=== PATIENT | female | born 1965 | race Caucasian/White ===

== ENCOUNTER 2021-09-19 14:11 | Outpatient (REF) | payer OTHER, SELFPAY | END 2021-09-19 14:12 | disposition home or self-care (01) | LOC: HO.LNP 14:11 | PROVIDERS: Visit Provider Physician Assistant Medical | DX: Z20.822 Contact with and (suspected) exposure to COVID-19 (principal) | CPT/HCPCS: U0003; U0005 ==

== ENCOUNTER 2021-10-04 03:02 | Emergency (ER) | payer OTHER, SELFPAY ==
[2021-10-04] VITALS (7 sets, daily range): BP systolic 124–142; BP diastolic 74–87; PULSE 62–87; RESP 14–20; TEMP 36.6–37.2; O2SAT 93–98; BMI 35.9
--- NOTE | ~2021-10-04 | XR_ITS ---
EXAMINATION: XR HIPS, BILATERAL XR FEMUR, LEFT XR KNEE, LEFT XR TIBIA/FIBULA, LEFT CLINICAL INFORMATION: Fall, pain COMPARISON: None TECHNIQUE: AP pelvis and 2 views of each hip. 2 views of the left femur. 3 views of the left knee. 2 views of the left tibia/fibula. FINDINGS: Pelvis/hips: Alignment across the hips is anatomic, with mild joint space narrowing and acetabular spurring bilaterally. No acute fracture identified in the pelvis or proximal femurs. Sacroiliac joints and pubic symphysis appear intact. Left femur: Remainder of the left femur appears unremarkable. Left knee: Osseous alignment is anatomic. Joint spaces appear relatively well-preserved. No acute fracture is seen. No significant effusion. Left tibia/fibula: No acute fracture identified. Alignment at the ankle is anatomic. No significant focal soft tissue abnormality identified. XR/XR tibia fibula LT 2V IMPRESSION: No acute findings identified in the pelvis/hips, left femur, left knee, or left tibia/fibula.
--- NOTE | ~2021-10-04 | XR_ITS ---
EXAMINATION: XR HIPS, BILATERAL XR FEMUR, LEFT XR KNEE, LEFT XR TIBIA/FIBULA, LEFT CLINICAL INFORMATION: Fall, pain COMPARISON: None TECHNIQUE: AP pelvis and 2 views of each hip. 2 views of the left femur. 3 views of the left knee. 2 views of the left tibia/fibula. FINDINGS: Pelvis/hips: Alignment across the hips is anatomic, with mild joint space narrowing and acetabular spurring bilaterally. No acute fracture identified in the pelvis or proximal femurs. Sacroiliac joints and pubic symphysis appear intact. Left femur: Remainder of the left femur appears unremarkable. Left knee: Osseous alignment is anatomic. Joint spaces appear relatively well-preserved. No acute fracture is seen. No significant effusion. Left tibia/fibula: No acute fracture identified. Alignment at the ankle is anatomic. No significant focal soft tissue abnormality identified. XR/XR hips BEN min 3V IMPRESSION: No acute findings identified in the pelvis/hips, left femur, left knee, or left tibia/fibula.
--- NOTE | ~2021-10-04 | XR_ITS ---
EXAMINATION: XR HIPS, BILATERAL XR FEMUR, LEFT XR KNEE, LEFT XR TIBIA/FIBULA, LEFT CLINICAL INFORMATION: Fall, pain COMPARISON: None TECHNIQUE: AP pelvis and 2 views of each hip. 2 views of the left femur. 3 views of the left knee. 2 views of the left tibia/fibula. FINDINGS: Pelvis/hips: Alignment across the hips is anatomic, with mild joint space narrowing and acetabular spurring bilaterally. No acute fracture identified in the pelvis or proximal femurs. Sacroiliac joints and pubic symphysis appear intact. Left femur: Remainder of the left femur appears unremarkable. Left knee: Osseous alignment is anatomic. Joint spaces appear relatively well-preserved. No acute fracture is seen. No significant effusion. Left tibia/fibula: No acute fracture identified. Alignment at the ankle is anatomic. No significant focal soft tissue abnormality identified. XR/XR femur LT 2V IMPRESSION: No acute findings identified in the pelvis/hips, left femur, left knee, or left tibia/fibula.
--- NOTE | ~2021-10-04 | XR_ITS ---
EXAMINATION: XR HIPS, BILATERAL XR FEMUR, LEFT XR KNEE, LEFT XR TIBIA/FIBULA, LEFT CLINICAL INFORMATION: Fall, pain COMPARISON: None TECHNIQUE: AP pelvis and 2 views of each hip. 2 views of the left femur. 3 views of the left knee. 2 views of the left tibia/fibula. FINDINGS: Pelvis/hips: Alignment across the hips is anatomic, with mild joint space narrowing and acetabular spurring bilaterally. No acute fracture identified in the pelvis or proximal femurs. Sacroiliac joints and pubic symphysis appear intact. Left femur: Remainder of the left femur appears unremarkable. Left knee: Osseous alignment is anatomic. Joint spaces appear relatively well-preserved. No acute fracture is seen. No significant effusion. Left tibia/fibula: No acute fracture identified. Alignment at the ankle is anatomic. No significant focal soft tissue abnormality identified. XR/XR knee LT 3V IMPRESSION: No acute findings identified in the pelvis/hips, left femur, left knee, or left tibia/fibula.
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
--- NOTE | 2021-10-04 04:43 | PC.NURSE ---
Lainey sleeping comfortably/peacefully at this time. Did not disturb. Will medicate when awake.
[2021-10-04] MEDS: Acetaminophen 325 MG TABLET 650 MG PO ×2 (05:12→16:07)
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
--- NOTE | 2021-10-04 11:22 | PC.NURSE ---
patient awake, asked to go to bathroom. patient able to stand at side of bed, was unable to ambulate, c/o pain in left leg. rn and tech assisted patient with dary-steady to bathroom. case management made aware,
[2021-10-04 14:46] LABS: COVID-19 Test Negative (Negative)
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
--- NOTE | 2021-10-04 20:31 | PC.NURSE ---
patient given crutches to ambulate to bathroom. able to use crutches and get to bathroom successfully.
--- NOTE | 2021-10-05 08:21 | PC.NURSE ---
PT working with pt at this time
[2021-10-05 09:17] VITALS: BP 113/72; PULSE 60; RESP 14; O2SAT 97
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
== END 2021-10-05 09:39 | disposition home or self-care (01) ==
LOC: HO.ED 05:17
PROVIDERS: Physician Assistant; Emergency Provider Emergency Medicine; PCP Internal Medicine
DX: S80.02XA Contusion of left knee, initial encounter (principal); M25.552 Pain in left hip; V03.00XA Pedestrian on foot injured in collision with car, pick-up truck or van in nontraffic accident, initial encounter; Y93.9 Activity, unspecified; Y92.9 Unspecified place or not applicable; Y99.9 Unspecified external cause status; Z20.822 Contact with and (suspected) exposure to COVID-19; Z79.899 Other long term (current) drug therapy
CPT/HCPCS: 36415; 73522; 73552; 73562; 73590; 87635; 97161; 99284